=== PATIENT | male | born 1985 | race African-American/Black ===

== ENCOUNTER 2020-08-06 20:08 | Emergency (ER) | payer SELFPAY ==
--- NOTE | 2020-08-06 20:12 | NUR ---
PT REFUSING TO BE TRIAGE, REFUSE TO ANSWER QUESTIONS. STATES "I NEED A FEW MINUTES TO THINK ABOUT IT, I FEEL BETTER AND I MIGHT JUST LEAVE." PT DENIES SI/HI. PT AAOX4, NO ACUTE DISTRESS NOTED. PT REFUSE TRIAGE V/S.
--- NOTE | 2020-08-06 20:32 | NUR ---
PT REFUSE TRIAGE AND V/S. PT WANTS TO LEAVE. PT DENIES SI/HI.
== END 2020-08-06 20:37 | disposition left against medical advice (07) ==
LOC: ER 20:12
DX: Z53.21 Procedure and treatment not carried out due to patient leaving prior to being seen by health care provider (principal)